=== PATIENT | male | born 1965 | race African-American/Black ===

== ENCOUNTER 2023-09-02 11:06 | Emergency (ER) | payer OTHER, SELFPAY ==
[2023-09-02 11:14] VITALS: BP 175/78; PULSE 86; RESP 20; TEMP 36.2; O2SAT 99
[2023-09-02 11:22] VITALS: BP 175/78; PULSE 86; RESP 20; TEMP 36.2; O2SAT 99
--- NOTE | 2023-09-02 11:58 | ED.GENADULT ---
HPI - General Adult General Chief complaint: Upper Respiratory Infection Stated complaint: bad cold Source: patient Mode of arrival: ambulatory Limitations: no limitations History of Present Illness HPI narrative: Patient presents for evaluation of cough for the last 3 days. He states cough is nonproductive but he has associated wheezing and shortness of breath. He has an underlying history of asthma. He cannot tell me how often he has been using his albuterol inhaler. He does not use nebulizer treatments. He does not smoke. His recently had similar symptoms. He denies any fever, nausea, vomiting, diarrhea but has experienced some chills. He has a hx of DM, HTN and hyperlipidemia. He does not check his blood sugar at home. He does experience some abdominal discomfort only during significant coughing spells. He denies abdominal pain otherwise. Related Data Home Medications Medication Instructions Recorded Confirmed albuterol sulfate 90 mcg/actuation 2 inh inhalation DIRECTED 09/02/23 09/02/23 aerosol inhaler amlodipine 10 mg tablet 10 mg PO DIRECTED 09/02/23 09/02/23 brimonidine 0.2 % eye drops 1 drp EACH EYE DIRECTED 09/02/23 09/02/23 canagliflozin 100 mg tablet 100 mg PO DIRECTED 09/02/23 09/02/23 (Invokana) hydrochlorothiazide 25 mg tablet 25 mg PO DIRECTED 09/02/23 09/02/23 insulin detemir U-100 100 unit/mL 80 unit subcut DIRECTED 09/02/23 09/02/23 (3 mL) subcutaneous pen (Levemir FlexPen) liraglutide 0.6 mg/0.1 mL (18 mg/3 1.8 mg subcut DIRECTED 09/02/23 09/02/23 mL) subcutaneous pen injector (Victoza 3-Blue) montelukast 10 mg tablet 10 mg PO DIRECTED 09/02/23 09/02/23 rosuvastatin 10 mg tablet 10 mg PO DIRECTED 09/02/23 09/02/23 tadalafil 5 mg tablet 5 mg PO DIRECTED 09/02/23 09/02/23 Allergies Allergy/AdvReac Type Severity Reaction Status Date / Time No Known Allergies Allergy Verified 09/02/23 11:19 Review of Systems Review of Systems: CONSTITUTIONAL: Reports chills. Denies fever or sweats. EYES: Denies visual changes, redness, or discharge. ENT: Denies rhinorrhea, congestion, sore throat, or otalgia. CARDIOVASCULAR: Denies chest pain, palpitations, or edema. RESPIRATORY: Reports nonproductive cough, shortness of breath and wheezing. GASTROINTESTINAL: Reports some abdominal discomfort while coughing. Denies abdominal pain otherwise. Denies nausea, vomiting, or diarrhea. GENITOURINARY: Denies dysuria or hematuria. SKIN: Denies rash or itching. MUSCULOSKELETAL: Denies back pain, joint pain, or myalgia. NEUROLOGIC: Denies headache, numbness, dizziness, or weakness. PSYCHIATRIC: Denies anxiety or depression. [facility] Past Medical History Medical History (Updated 09/02/23 @ 12:12 by Ramiro Dotson, [facility], ) Asthma exacerbation Diabetes Hyperlipidemia Hypertension Surgical History Surgical History History of eye surgery Family History Family History (Updated 09/02/23 @ 12:08 by Ramiro Dotson, [facility], ) Mother Family history non-contributory Social History Social History Smoking status: Never smoker Alcohol intake: never Substance use: never Living arrangements: with family Gender identity (if verbalized by the patient): Male Sexual Orientation (if Verbalized by the Patient): Straight or Heterosexual Spiritual care concerns: No Exam Narrative: GENERAL: Well-appearing, well-nourished, and in no acute distress. HEAD: Normocephalic, atraumatic. EYES: PERRLA and EOMI. ENT: Nares clear, no rhinorrhea or epistaxis. Mucous membranes moist. Oropharynx without tonsillar hypertrophy exudate or other lesions. Bilateral TMs pearly chavira nonbulging NECK: Supple. No adenopathy or masses. No carotid bruits or JVD CHEST: Clear to auscultation. Cough present exam. no respiratory distress. No wheezes rales
[2023-09-02 12:04] LABS: Glucose Point of Care 239 mg/dl (65-105)
== END 2023-09-02 12:26 | disposition home or self-care (01) ==
PROVIDERS: Emergency Provider Nurse Practitioner
DX: U07.1 COVID-19 (principal); J45.909 Unspecified asthma, uncomplicated; E11.9 Type 2 diabetes mellitus without complications; Z79.4 Long term (current) use of insulin; E78.5 Hyperlipidemia, unspecified; I10 Essential (primary) hypertension
CPT/HCPCS: 82948; 87426; 87804; 99213; C9803; G0463

== ENCOUNTER 2024-11-05 16:43 | Emergency (ER) | payer OTHER, SELFPAY ==
[2024-11-05 16:55] VITALS: BP 157/69; PULSE 73; RESP 16; TEMP 36.3; O2SAT 100
--- NOTE | 2024-11-05 17:22 | ED_ITS ---
HPI - URI/Sore Throat General Chief Complaint: Upper Respiratory Infection Stated Complaint: Cough Source: patient Mode of arrival: ambulatory Limitations: no limitations History of Present Illness HPI Narrative: 58-year-old male presented for complaint of cough x one week, and started with body aches, headache and diarrhea today. Denies shortness of breath, wheezing, abdominal pain, hematochezia, nausea, vomiting, fevers or lethargy. Related Data Home Medications ?Medication ?Instructions ?Recorded ?Confirmed ?Last Taken ?Type albuterol sulfate 90 mcg/actuation 2 inh inhalation DIRECTED 09/02/23 09/02/23 Unknown History aerosol inhaler amlodipine 10 mg tablet 10 mg PO DIRECTED 09/02/23 09/02/23 Unknown History brimonidine 0.2 % eye drops 1 drp EACH EYE DIRECTED 09/02/23 09/02/23 Unknown History hydrochlorothiazide 25 mg tablet 25 mg PO DIRECTED 09/02/23 09/02/23 Unknown History insulin detemir U-100 100 unit/mL 80 unit subcut DIRECTED 09/02/23 09/02/23 Unknown History (3 mL) subcutaneous pen (Levemir FlexPen) liraglutide 0.6 mg/0.1 mL (18 mg/3 1.8 mg subcut DIRECTED 09/02/23 09/02/23 Unknown History mL) subcutaneous pen injector (Victoza 3-Blue) montelukast 10 mg tablet 10 mg PO DIRECTED 09/02/23 09/02/23 Unknown History rosuvastatin 10 mg tablet 10 mg PO DIRECTED 09/02/23 09/02/23 Unknown History diltiazem HCl 240 mg 240 mg PO Q24H 11/05/24 Unknown History capsule,extended release 24 hr empagliflozin 25 mg tablet 25 mg PO DAILY 11/05/24 Unknown History (Jardiance) fluticasone 250 mcg-salmeterol 50 1 inh inhalation Q12H 11/05/24 Unknown History mcg/dose blistr powdr for inhalation (Wixela Inhub) latanoprost 0.005 % eye drops 1 drp EACH EYE QPM 11/05/24 Unknown History timolol maleate 0.5 % eye drops 1 drp EACH EYE Q12H 11/05/24 Unknown History Allergies Allergy/AdvReac Type Severity Reaction Status Date / Time No Known Allergies Allergy Verified 11/05/24 17:09 Review of Systems Review of Systems: CONSTITUTIONAL: reports body aches, denies fever, chills, or sweats. EYES: Denies visual changes, redness, or discharge. ENT: denies rhinorrhea, congestion, sore throat, or otalgia. CARDIOVASCULAR: Denies chest pain, palpitations, or edema. RESPIRATORY: Reports cough, denies sob, wheezing. GASTROINTESTINAL: Denies abdominal pain, nausea, vomiting, reports diarrhea. NEUROLOGIC: reports headache All systems reviewed & are unremarkable except as noted in HPI and below PMFSH Past Medical History Medical History Diabetes Hyperlipidemia Hypertension Asthma exacerbation Surgical History Surgical History History of eye surgery Family History Family History Mother Family history non-contributory Social History Social History Smoking status: Never smoker Alcohol intake: never Substance use: never Living arrangements: with family Gender identity (if verbalized by the patient): Male Sexual Orientation (if Verbalized by the Patient): Straight or Heterosexual Spiritual care concerns: No Comments At time of signature, I have reviewed and agree with nursing past medical, surgical, social and family history unless otherwise noted. Please see nursing chart for further information. There is no relevant family history pertinent to the presenting complaint Exam Narrative: GENERAL: Well-appearing, in no acute distress. EYES: EOMI. No redness or drainage. Conjunctivae normal. ENT: Mucous membranes pink and moist. No rhinorrhea. NECK: Normal AROM. CHEST: No respiratory distress. diminished to bases, frequent cutter first cough. HEART: Regular rate and rhythm. No murmur appreciated. ABDOMEN: Soft, nontender, nondistended, normal active bowel sounds. EXTREMITIES: Normal range of motion. No edema. SKIN: Warm, dry, no rash. Capillary refill normal. Normal skin turgor. NEURO: Alert and oriented x3. Gait steady. PSYCH: Normal affect. Course Course Emergency Course: Patient is aware of diagnosis, understands and agrees to treatment plan. A nticipatory guidance given. Patient agrees to follow-up as directed and is aware of reasons to seek care at the emergency department. Portions of this record may have been created with voice recognition software Level of Care: Express Care Visit Vital Signs Vital signs: Vital Signs Temperature 97.4 F L 11/05/24 16:55 Pulse Rate 73 11/05/24 16:55 Respiratory Rate 16 11/05/24 16:55 Blood Pressure 157/69 H 11/05/24 16:55 Pulse Oximetry 100 11/05/24 16:55 Oxygen Delivery Room Air 11/05/24 16:55 Temperature 97.4 F L 11/05/24 16:55 Pulse Rate 73 11/05/24 16:55 Respiratory Rate 16 11/05/24 16:55 Blood Pressure 157/69 H 11/05/24 16:55 Pulse Oximetry 100 11/05/24 16:55 Oxygen Delivery Room Air 11/05/24 16:55 MDM - URI/Sore Throat MDM Narrative Medical decision making narrative: negative flu and COVID. Discussed physical exam findings. Declined CXR. Reviewed RX. Advised supportive measures and signs/symptoms to go to the ER. Pt is appropriate for outpt treatment and f/u. Differential Diagnosis Differential diagnosis: Likely upper respiratory infection, otitis media, sinusitis, viral infection, bronchitis and other Discharge Plan Discharge Clinical Impression: Bronchitis Patient Disposition: Home, Self-Care Condition: Stable Instructions: Antibiotic Form, Acute Bronchitis (ED) Additional Instructions: Acute bronchitis can be contagious because it is usually caused by infection with a virus or bacteria. It is usually for a few days but you can be contagious for up to one week. Avoid crowds until you do not have a fever and symptoms are improved Take medication as directed Avoid triggers. over the counter Cough syrup may cause drowsiness; avoid driving or take it at night time. Coricidin HBP for cough if you have hypertension Tylenol 1000mg every 8 hours as needed for pain Symptomatic treatment includes: rest, fluids, and increase humidity of the air at home. Asthma: Visit your primary care doctor if You have: wheezing, shortness of breath, or a cough despite taking medicine to prevent attacks. thickening of sputum or Your sputum changes (from clear or white to yellow, green, chavira, or bloody) any problems that may be related to the medicines you are taking (such as a rash, itching, swelling, or trouble breathing). using a reliever medicine more than 2 to 3 times per week. Visit the ER if You are: short of breath even at rest or when doing very little physical activity. develop difficulty eating, drinking, or talking due to asthma symptoms. having chest pain or you feel that your heart is beating fast. lightheaded, dizzy, faint or have bluish lips or fingernails. fever or persistent symptoms for more than 2 to 3 days or symptoms suddenly get worse. getting worse and are unresponsive to treatment during an asthma attack. Follow up with your primary care provider in 1 week Go to the ER for worsening symptoms or concerns Patient Language: Kuwaiti Prescriptions: New azithromycin [Zithromax Z-Blue] 250 mg tablet See Rx Instructions .ROUTE .COMPLEX Qty: 6 0RF Rx Instructions: For 250 mg dose pack: take 500 mg today (day 1), then 250 mg for 4 days (days 2-5) methylprednisolone [Medrol (Blue)] 4 mg tablets,dose pack See Rx Instructions .ROUTE .COMPLEX Qty: 21 0RF Rx Instructions: orally per package directions albuterol sulfate 90 mcg/actuation HFA aerosol inhaler 2 inh inhalation QID PRN (Reason: shortness of breath or wheezing) Qty: 8.5 0RF No Action amlodipine 10 mg tablet 10 mg PO DIRECTED brimonidine 0.2 % drops 1 drp EACH EYE DIRECTED montelukast 10 mg tablet 10 mg PO DIRECTED hydrochlorothiazide 25 mg tablet 25 mg PO DIRECTED albuterol sulfate 90 mcg/actuation HFA aerosol inhaler 2 inh inhalation DIRECTED rosuvastatin 10 mg tablet 10 mg PO DIRECTED Levemir FlexPen 100 unit/mL (3 mL) insulin pen 80 unit SUBCUT DIRECTED liraglutide [Victoza 3-Blue] 0.6 mg/0.1 mL (18 mg/3 mL) pen injector 1.8 mg SUBCUT DIRECTED timolol maleate 0.5 % drops 1 drp EACH EYE Q12H fluticasone propion-salmeterol [Wixela Inhub] 250-50 mcg/dose blister with device 1 inh INHALATION Q12H latanoprost 0.005 % drops 1 drp EACH EYE QPM Jardiance 25 mg tablet 25 mg PO DAILY diltiazem HCl 240 mg capsule,extended release 24hr 240 mg PO Q24H Follow-up/Referrals: PHYSICIAN NOT ON STAFF,NONSTAFF [Primary Care Provider] -
== END 2024-11-05 17:35 | disposition home or self-care (01) ==
PROVIDERS: Emergency Provider Nurse Practitioner Family
DX: J40 Bronchitis, not specified as acute or chronic (principal); E11.9 Type 2 diabetes mellitus without complications; I10 Essential (primary) hypertension; Z79.899 Other long term (current) drug therapy
CPT/HCPCS: 99213; G0463

== ENCOUNTER 2025-07-05 09:04 | Emergency (ER) | payer OTHER, SELFPAY ==
--- OUTSIDE RECORDS SUMMARY | 2021-08-16 05:45 | XMS_ITS | Continuity of Care Document ---
Author Organization [employer] [facility] Address [address] [place] [address] [place] [phone] Phone Care Team Providers Care Mangle Roller Name Role Phone Corey Valente MD, FACS Unavailable Unavailab le Allergies, Adverse Reactions, Alerts Substance Reaction Status Criticality No Known Allergies Active No Inform ation Medications Medication Instructions Dosage Effective Dates (start - stop) Status Comments albuterol sulfate concentrate 2.5 mg/0.5 mL solution for nebulization inhale 0.5 milliliter by nebulization route 3 times every day 2.5 MG - Active diltiazem ER 240 mg capsule,24 hr,extended release take 1 capsule by oral route every day 240 MG - Active garlic 100 mg tablet - Active glipizide 10 mg tablet take 1 tablet by oral route every day before a meal 10 MG - Active montelukast 10 mg tablet take 1 tablet by oral route every day in the evening 10 MG - Active Novolin 70/30 U-100 Insulin 100 unit/mL subcutaneous suspension inject by subcutaneous route as per insulin protocol 0.00 - Active valsartan 80 mg tablet take 1 tablet by oral route every day 80 MG - Active Procedures Procedure Date No Charge Orbscan No Charge Refraction SCODI, Retina No Charge Optomap Fundus Photos 021 Office/outpatient Visit, [facility] IOLMaster IOLMaster Advance Directives Directive Yes / No Effective Date File Name No Information Encounters Encounter Description Practice Location Reason(s) For Visit Diagnoses Date Provider Providers Copied on Encounter [facility], [address], [place], [place], [id number], [place] tel:[phone] SEC Alexsandra Margie Lovely No Information Jul- 1 Ambrosio Nicole. [address] [facility], [address], [place], [place], [id number], [place]. 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 [address] [facility], [address], [place], [place], [id number], [place]. tel:[phone] Referring Provider: Billy Valentine OD, [address] [facility], [place], [address]. tel:[phone] Family History Family Member Type Diagnosis Age At Onset No Information Payers Payer name Insurance type Covered green party ID Authoriza tion(s) [facility] CI [id number] Social History Type Description Quantity Date Captured Comments Alcohol Use Details Unknown Caffeine Use Details Unknown Tobacco Use Status No Information Smoking Status No Information Sex Male Chief Complaint And Reason For Visit No Information Reason For Referral Reason For Referral No Information Plan Of Treatment Date Type Action Status Patient Education Cataracts: Care Instruc tions completed History Of Present Illness Encounter Date Complaint History Of Prese nt Illness Cataract evaluation The 55 year old male presents for a cataract evaluation per Dr. Valentine. Patient is a Type II diabetic x 20 years. Patient has diabetic retinopathy with mac edema ou. BS was 134 a week ago and last A1C was 7.5 and PCP treats DM. Patient is bothered by glare around lights at night. Patient is having a hard time reading small print. Patient is having a hard time seeing street signs. Patient c/o decreased vision x 1 year. Functional Status Date Functional Assessmen t No Information Instructions Date Instruction Additional Nilar olegario Impression/Plan Assessments Type Assessment Date No Information Patient Care Teams Name Effective Dates (start - stop) Status Members No Information
--- NOTE | ~2025-07-05 | XR_ITS ---
EXAMINATION: XR chest 2V, 07/05/2025 9:40 CDT HISTORY: cough, congestion 1 week COMPARISON: No comparisons available. Technique: 2 views obtained. Findings: The lungs are clear, no effusion. No pneumothorax. Heart is normal size. Mediastinal and hilar contours are within normal limits. Bony thorax no acute abnormality. Impression: No acute cardiopulmonary abnormality. Reviewed, dictated and finalized at location A. Impression: No acute cardiopulmonary abnormality.
--- OUTSIDE RECORDS SUMMARY | 2025-07-05 09:07 | XMS_ITS | Clinical Summary ---
Author Organization [facility] Address [address] [place] [address] Care Team Providers Care Aircraft Instrument Engineer Name Role Phone Roshan Gonzáles MD Primary Care Provider Source Comments [facility],non-owned Affiliates and Associated Physician Practices is amultiple site organization consisting of ambulatory clinics and hospital sitesin [place], [place], [place] and [place]. This disclosure is being madepursuant to the Care Everywhere program and may not contain all information available regarding this patient. Last updated 18.[facility] Allergies No known active allergies Medications * Be aware that medications may not be up to date on this document. Alwaysverify current medications with the patient. insulin isophane & reg, human, 70/30 (NOVOLIN 70/30) vial Inject 30 Units subcutaneously 7 Active glipiZIDE (GLUCOTROL) 10 MG tablet Take 10 mg by mouth once daily 7 Active albuterol HFA (VENTOLIN HFA) 108 (90 Base) MCG/ACT inhaler 7 Active albuterol (PROVENTIL;ANDREW TOLIN) (2.5 MG/3ML) 0.083% nebulizer solution Inhale 2.5 mg by mouth Active furosemide (LASIX) 20 MG tablet 7 Active omeprazole (PRILOSEC) 20 MG capsule Take 20 mg by mouth once daily Active dilTIAZem coated beads 24hr (CARDIZEM CD) 240 MG capsule Take 240 mg by mouth once daily 7 Active METOPROLOL SUCCINATE PO Active Social History Tobacco Use Types Packs/Day Years Used Date Smoking Tobacco: Never Smokeless Tobacco: Never Sex and Gender Information Value Date Recorded Sex Assigned at Not on file Legal Sex Male 11:20 AM CDT Gender Identity Not on file Sexual Orientation Not on file Last Filed Vital Signs Vital Sign Reading Time Taken Comments Blood Pressure 146/90 03/25/2019 11:39 AM CDT Pulse 48 03/25/2019 11:39 AM CDT Temperature 37.2 C (99 F) 03/25/2019 11:39 AM CDT Respiratory Rate - - Oxygen Saturation 96% 03/25/2019 11:39 AM CDT Inhaled Oxygen Concentration - - Weight 127 kg (280 lb) 03/25/2019 11:39 AM CDT Height 182.9 cm (6') 03/25/2019 11:39 AM CDT Body Mass Index 37.97 03/25/2019 11:39 AM CDT Plan of Treatment Health Maintenance Due Date Last Done Comments COLOGUARD (AGES 45-75) - COL ON CA SCREENING 1963 COLON MONITORING 1963 COLONOSCOPY - COLON CA SCREENING 1963 CT COLONOGRAPHY - COLON CA SCREENING 1963 Colorectal Cancer Screening 1963 FIT - COLON CA SCREENING 1963 FLEX SIG - COLON CA SCREENING 1963 HIV SCREENING 1978 HEPATITIS C SCREENING 11/20/1981 DTAP/TDAP/TD VACCINES (1 - Tdap) 1982 PNEUMOCOCCAL VACCINE 50+ (1 of 1 - PCV) 2013 ZOSTER VACCINE (1 of 2) 2013 SCREENING FOR DIABETES 03/25/2019 LIPID TESTING 02/16/2022 02/16/2017 COVID-19 VACCINE (1 - 2023-2 5 season) 2024 DEPRESSION SCREENING 10/29/2024 INFLUENZA VACCINE (#1) 2025 10/29/2005 Respiratory Syncytial Virus (RSV) Vaccine Pt: or over 60 yrs (1 - 1-dose 75+ series) 2038 HEPATITIS B VACCINE Aged Out No longe r eligible based on patient's age to complete this topic HIB VACCINE Aged Out No longer eligi ble based on patient's age to complete this topic HPV VACCINE Aged Out No longer eligi ble based on patient's age to complete this topic MENINGOCOCCAL (Group B) VACC INE SHARED DECISION-MAKING Aged Out No longer eligibl e based on patient's age to complete this topic MENINGOCOCCAL GROUPS A/C/Y/W VACCINE Aged Out No longer eligible b ased on patient's age to complete this topic Insurance Care Teams Aircraft Instrument Engineer Relationship Specialty Start Date End Date Roshan Gonzáles MD PCP - General Family Medicine 03/25/19
--- OUTSIDE RECORDS SUMMARY | 2025-07-05 09:07 | XMS_ITS | Clinical Summary ---
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 (04/02/2019 11:56 AM CDT) Hep C Ab Negative Negative DELMYKATARINA CRUZ ([place]) Comment:Testing performed by : [facility], [address] [place] [address], [id number] Blood specimen (specimen) 04/02/2019 11:56 AM CDT 04/02/2019 6:51 PM CDT Narrative SAM ARROYO ([place]) - 04/02/2019 7:55 PM CDT us Roshan Gonzáles MD LAB MICROBIOLOGY - GENERAL ORDERABLES Final Result SAM CRUZ ([place]) 1 [facility] [place] [address] * COLONOSCOPY (08/26/2018 9:10 AM CDT) Anatomical Region Laterality Modality Other Narrative Procedure Note Marimar Blandon MD - 08/26/2018 9:10 AM CDT [facility] Patient Name: Larry Avendaño Procedure Date: 08/26/2018 9:10 AM Date of : 1965 Admit Type: Outpatient Age: 52 Gender: Male Attending MD: Marimar Blandon MD Room: [facility] ENDOSCOPY ROOM 1 Note Status: Finalized Patient Profile: 52 AAM, screening, no family h/o colon cancer. Procedure: Colonoscopy Indications: Screening for colorectal malignant neoplasm Referring MD: Roshan Gonzáles MD Providers: Marimar Blandon MD Impression: - The cecum is normal. - The entire examined colon is normal. - No specimens collected. Recommendation: - Discharge patient to home. - Continue present medications. - Repeat colonoscopy in 10 years for screeningpurposes. Medicines: Monitored Anesthesia Care Complications: No immediate complications. Estimated Blood Loss: Estimated blood loss: none. Procedure: Pre-Anesthesia Assessment: - Prior to the procedure, a History and Physical was performed, and patient medications and allergieswere reviewed. The patient's tolerance of previous anesthesia was also reviewed. The risks and benefitsof the procedure and the sedation options and riskswere discussed with the patient. All questions were answered, and informed consent was obtained. Prior Anticoagulants: The patient has taken no previous anticoagulant or antiplatelet agents. ASA Grade Assessment: II - A patient with mild systemicdisease. After reviewing the risks and benefits, the patientwas deemed in satisfactory condition to undergo the procedure. The benefits, risks and alternatives of theprocedure and sedation were discussed and informed consent was obtained. All questions were answered. Please referto the signed informed consent document in the medical record. The scope was passed under direct vision.The Pediatric Colonoscope PCF-H190L [id number] was introduced through the anus and advanced to the the cecum, identified by appendiceal orifice andileocecal valve. The colonoscopy was performed without difficulty. The patient tolerated the procedurewell. The quality of the bowel preparation was good. Findings: The perianal and digital rectal examinations were normal. The cecum appeared normal. The colon (entire examined portion) appeared normal. No polyps and no mass lesions. The rectum and retroflexion in the rectum was normal. Electronically signed by Marimar Blandon M.D. Marimar Blandon MD 08/26/2018 9:46:58 AM Number of Addenda: 0 Note Initiated On: 08/26/2018 9:10 AM Procedure Code(s): --- Professional --- 44075, Colonoscopy, flexible; diagnostic, including collection of specimen(s) by brushing or washing, when performed (separateprocedure) Diagnosis Code(s): --- Professional --- Z12.11, Encounter for screening for malignant neoplasm of colon CPT copyright 2017 [employer]. All rights reserved. The codes documented in this report are preliminary and upon energy conservation specialist reviewmay be revised to meet current compliance requirements. Recognized by the [employer] for promoting quality in endoscopy Marimar Blandon MD ENDOSCOPY PROCEDURES Final Result * DIABETES FOOT EXAM (06/03/2018) Diabetic Foot Exam Unknown Historical Provider HEALTH MAINTENANCE Final Result from Last 3 Months or Most Recently Relevant to Health Maintenance Insurance [employer] [facility] C[employer] PLAN [id number] CORE HE[employer] PLAN Member Subscriber Plan / Payer (Ef fective 2020-Present) Name:Larry Avendaño Relation to Subscriber:Self Name:Larry Avendaño Payer ID:[id number] (NAIC) Type:[facility] HMO/PPO Address: [address] [place] [id number] Advance Directives For more information, please contact: [phone] * Full Code (Latest Code Status on File) Date Activated Date Inactivated Comments 08/26/2018 8:28 AM 08/26/2018 1:10 PM Care Teams Crm Technical Lead Relationship Specialty Start Date End Date Jean Paul Dupree MD PCP - General Family Medicine 08/11/21
--- OUTSIDE RECORDS SUMMARY | 2025-07-05 09:07 | XMS_ITS | Clinical Summary ---
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 Active insulin NPH-insulin regular (NovoLIN) (70-30) 100 UNIT/ML injection Inject under the skin 2 (two) times a day Active Semaglutide (OZEMPIC, 0.25 OR 0.5 MG/DOSE, SC) Inject under the skin 1 (one) time each day As Directed Active rosuvastatin (CRESTOR) 20 MG tablet Take 20 mg by mouth 1 (one) time each day Active montelukast (SINGULAIR) 10 MG tablet Take 10 mg by mouth every night Active valsartan (DIOVAN) 80 MG tablet Take 80 mg by mouth 1 (one) time each day Active sildenafil (VIAGRA) 50 MG tablet Take 50 mg by mouth 1 (one) time each day if needed Active Active Problems No known active problems Family History Medical History Relation Comments Alcohol abuse Father Hypertension Father Asthma Mother Diabetes Mother Relation Status Comments Father Mother Social History Tobacco Use Types Packs/Day Years Used Date Smoking Tobacco: Never Smokeless Tobacco: Never Alcohol Use Standard Drinks/Week Comments Never 0 (1 standard drink = 0.6 oz pur e alcohol) Sex and Gender Information Value Date Recorded Sex Assigned at Not on file Legal Sex Male 11:59 AM EST Gender Identity Not on file Sexual Orientation Not on file Plan of Treatment Health Maintenance Due Date Last Done Comments Pneumococcal Vaccine: 50+ Ye ars (1 of 2 - PCV) 1982 Colorectal Cancer Screening: Annual FOBT 2012 Colorectal Cancer Screening: Colonoscopy 2012 Colorectal Cancer Screening: Sigmoidoscopy 2012 Diabetes: Ophthalmology Exam 01/27/2022 Diabetes: Pedal Pulse Checked 01/27/2022 Diabetes: Sensory Foot Exam 01/27/2022 Diabetes: Visual Foot Exam 01/27/2022 Diabetes: Hemoglobin A1C 02/23/2022 2021 Influenza Vaccine (#1) 2025 10/29/2005 Hepatitis B Vaccine Aged Out No longe r eligible based on patient's age to complete this topic Procedures Procedure Name Priority Date/Time Associated Diagnosis Comments HEMOGLOBIN A1C Routine 2021 from Last 3 Months or Most Recently Relevant to Health Maintenance Results * (ABNORMAL) Hemoglobin A1c (2021) Hemoglobin A1C 10.8(A) 4.8 - 5.6 Blood specimen (specimen) Venous blood / Unknown 2021 us Historical Provider LAB BLOOD ORDERABLES Karen l Result from Last 3 Months or Most Recently Relevant to Health Maintenance
[2025-07-05 09:08] VITALS: BP 156/70; PULSE 56; RESP 20; TEMP 36.4; O2SAT 96
--- NOTE | 2025-07-05 09:42 | ED.URI ---
HPI - URI/Sore Throat General Chief Complaint: Upper Respiratory Infection Stated Complaint: Cough/chest/sneezing Time Seen by Provider: 07/05/25 09:42 Source: patient and RN notes reviewed Mode of arrival: ambulatory Limitations: no limitations History of Present Illness HPI Narrative: 59-year-old male presents Express Care complaining of cough, congestion, runny nose for the last week. Patient has been doing [id number] cold and flu medications without relief. Patient reports having a mucopurulent cough. Patient denies any chest pain or shortness of breath. Patient has any fevers, body aches, chills, nausea vomiting. Patient has a history of diabetes, asthma, and hypertension. Related Data Home Medications ?Medication ?Instructions ?Recorded ?Confirmed ?Last Taken ?Type albuterol sulfate 90 mcg/actuation 2 inh inhalation DIRECTED 09/02/23 09/02/23 Unknown History aerosol inhaler amlodipine 10 mg tablet 10 mg PO DIRECTED 09/02/23 09/02/23 Unknown History insulin detemir U-100 100 unit/mL 80 unit subcut DIRECTED 09/02/23 09/02/23 Unknown History (3 mL) subcutaneous pen (Levemir FlexPen) montelukast 10 mg tablet 10 mg PO DIRECTED 09/02/23 09/02/23 Unknown History rosuvastatin 10 mg tablet 10 mg PO DIRECTED 09/02/23 09/02/23 Unknown History diltiazem HCl 240 mg 240 mg PO Q24H 11/05/24 Unknown History capsule,extended release 24 hr empagliflozin 25 mg tablet 25 mg PO DAILY 11/05/24 Unknown History (Jardiance) latanoprost 0.005 % eye drops 1 drp EACH EYE QPM 11/05/24 Unknown History timolol maleate 0.5 % eye drops 1 drp EACH EYE Q12H 11/05/24 Unknown History Allergies Allergy/AdvReac Type Severity Reaction Status Date / Time No Known Allergies Allergy Verified 07/05/25 09:15 Review of Systems Review of Systems: CONSTITUTIONAL: Denies fever, chills, or sweats. EYES: Denies visual changes, redness, or discharge. ENT: Positive for rhinorrhea, congestion. Negative for sore throat, or otalgia. CARDIOVASCULAR: Denies chest pain, palpitations, or edema. RESPIRATORY: Positive for cough. Negative for wheezing or dyspnea. GASTROINTESTINAL: Denies abdominal pain, nausea, vomiting, or diarrhea. GENITOURINARY: Denies dysuria or hematuria. SKIN: Denies rash or itching. MUSCULOSKELETAL: Denies back pain, joint pain, or myalgia. NEUROLOGIC: Denies headache, numbness, or weakness. PSYCHIATRIC: Denies anxiety or depression. All other systems reviewed are negative, except as documented in HPI. [facility] Past Medical History Medical History Diabetes Hyperlipidemia Hypertension Asthma exacerbation Surgical History Surgical History History of eye surgery Family History Family History Mother Family history non-contributory Social History Social History Smoking status: Never smoker Alcohol intake: never Substance use: never Living arrangements: with family Gender identity (if verbalized by the patient): Male Sexual Orientation (if Verbalized by the Patient): Straight or Heterosexual Spiritual care concerns: No Comments At the time of my signature, I reviewed and agree with the nursing past medical, surgical, social, and family history. There is no relevant family history pertinent to the patient complaint. Exam Narrative: GENERAL: This is a well-nourished, well-developed adult, in no apparent distress. They are non ill-appearing, nontoxic appearing. HEAD: normocephalic, atraumatic. EYES: Sclera clear/white. Conjunctiva normal. Vision is grossly intact. Extraocular movements intact EARS: External ears normal, auditory canals clear and without drainage, TMs normal without perforation. Hearing grossly intact. NOSE: External nose normal with no obvious nasal discharge, nasal turbinates erythematous, no rhinorrhea. THROAT: Mucous membranes moist, posterior pharynx erythematous without redness. Uvula midline. Postnasal drip present NECK: Neck supple, non-tender without lymphadenopathy, masses or thyromegaly. CARDIOVASCULAR: Regular rate and rhythm without murmurs, gallops, or rubs. RESPIRATORY: Diminished lower lobes. Breath sounds equal bilaterally. No wheezes, rales, or rhonchi. SKIN: warm, Dry, intact with no suspicious lesions or rash, good texture and turgor. NEURO: awake, alert, and oriented to person, place and time. There were no obvious focal neurologic abnormalities. EXTREMITIES: No joint tenderness, effusion, or edema noted. Course Course Emergency Course: Portions of this record may have been created with voice recognition software Level of Care: Express Care Visit Vital Signs Vital signs: Vital Signs Temperature 97.6 F 07/05/25 09:08 Pulse Rate 56 L 07/05/25 09:08 Respiratory Rate 20 07/05/25 09:08 Blood Pressure 156/70 H 07/05/25 09:08 Pulse Oximetry 96 07/05/25 09:08 Oxygen Delivery Room Air 07/05/25 09:08 Temperature 97.6 F 07/05/25 09:08 Pulse Rate 56 L 07/05/25 09:08 Respiratory Rate 20 07/05/25 09:08 Blood Pressure 156/70 H 07/05/25 09:08 Pulse Oximetry 96 07/05/25 09:08 Oxygen Delivery Room Air 07/05/25 09:08 Reviewed MDM - URI/Sore Throat MDM Narrative Medical decision making narrative: Chest x-ray shows evidence of acute cardiopulmonary findings. Patient likely has a purulent bronchitis. Given his length symptoms will go ahead and treat with Augmentin along with a course of prednisone. Also prescribe benzonatate tablets as needed for cough. Discussed physical exam findings. Advised supportive measures and signs/symptoms to go to the ER. Pt is appropriate for outpt treatment and f/u. Differential Diagnosis Differential diagnosis: Likely upper respiratory infection, sinusitis, viral infection, bronchitis and other (Pneumonia) Imaging Data Radiologist's impression: ITS Impressions Chest X-Ray 07/05/25 10:31 Impression: No acute cardiopulmonary abnormality. Critical Care Time Critical Care Time Critical Care Time: No Discharge Plan Discharge Clinical Impression: Purulent bronchitis Patient Disposition: Home Condition: Stable Instructions: Antibiotic Form, Acute Bronchitis (ED) Additional Instructions: Your chest x-ray is negative for any acute cardiopulmonary findings. Please take the Augmentin as directed. Take the prednisone as directed. Use the benzonatate tablets as needed for cough. Use your inhaler as needed for shortness of breath. Tylenol or ibuprofen as needed for pain or fevers, follow instructions on the bottle. Follow-up with your PCP in 3-5 days. If you develop worsening chest pain, shortness of breath, fevers, nausea, vomiting, or any serious concerns please go to the ER immediately. Patient Language: Setswana Prescriptions: New prednisone 20 mg tablet 40 mg PO DAILY 5 Days Qty: 10 0RF benzonatate 100 mg capsule 100 mg PO TID PRN (Reason: cough) Qty: 20 0RF amoxicillin-pot clavulanate 875-125 mg tablet 1 tablet PO Q12H 7 Days Qty: 14 0RF No Action amlodipine 10 mg tablet 10 mg PO DIRECTED montelukast 10 mg tablet 10 mg PO DIRECTED albuterol sulfate 90 mcg/actuation HFA aerosol inhaler 2 inh inhalation DIRECTED rosuvastatin 10 mg tablet 10 mg PO DIRECTED Levemir FlexPen 100 unit/mL (3 mL) insulin pen 80 unit SUBCUT DIRECTED timolol maleate 0.5 % drops 1 drp EACH EYE Q12H latanoprost 0.005 % drops 1 drp EACH EYE QPM Jardiance 25 mg tablet 25 mg PO DAILY diltiazem HCl 240 mg capsule,extended release 24hr 240 mg PO Q24H albuterol sulfate 90 mcg/actuation HFA aerosol inhaler 2 inh inhalation QID PRN (Reason: shortness of breath or wheezing) Qty: 8.5 0RF Follow-up/Referrals: Regina,MD Kevin [Primary Care Provider, Unknown] Time of Disposition: 10:44
== END 2025-07-05 10:59 | disposition home or self-care (01) ==
PROVIDERS: PCP Neurological Surgery
DX: J40 Bronchitis, not specified as acute or chronic (principal); E11.9 Type 2 diabetes mellitus without complications; Z79.4 Long term (current) use of insulin; Z79.84 Long term (current) use of oral hypoglycemic drugs; I10 Essential (primary) hypertension; E78.5 Hyperlipidemia, unspecified; J45.909 Unspecified asthma, uncomplicated
CPT/HCPCS: 71046; 99213; G0463